=== PATIENT | male | born 1990 | race Caucasian/White ===

== ENCOUNTER 2025-01-10 06:29 | Day surgery (SDC) | payer OTHER ==
[~2025-01-10] VITALS: Ht 157.5 cm; Wt 75.9 kg
[~2025-01-10 06:29] MED LIST: ATOR20TA PO; BECL10.62 IH; FAMO20 PO; LISI-894 PO; MONT-35 PO
[2025-01-10] MEDS ORDERED: SODIUM CHLORIDE 0.9% 1,000 ML ONE (06:46)
[2025-01-10] MEDS: SODIUM CHLORIDE 0.9% 1,000 ML IV ONE (07:34)
[2025-01-10] MEDS ORDERED: MIDAZOLAM HCL 2 MG/2 ML VIAL ONE (08:04)
[2025-01-10] MEDS ORDERED: FentaNYL CITRATE PF 100 MCG/2 ML VIAL ONE (08:04)
[2025-01-10 09:55] VITALS: PULSE 86; RESP 18; O2SAT 99
[2025-01-10] MEDS ORDERED: BENZOCAINE 20% 50 MCG/SPRAY 57 GM ONE (12:00)
[2025-01-10] MEDS ORDERED: LIDOCAINE 4% 50 ML SOLUTION ONE (12:00)
[2025-01-10] MEDS ORDERED: ALBUTEROL SULFATE 2.5 MG/0.5 ML NEB SOLUTION NEB ONE (12:00)
[2025-01-10] MEDS ORDERED: LIDOCAINE 2% 11 ML JELLY ONE (12:00)
== END 2025-01-10 13:15 | disposition home or self-care (01) ==
LOC: SURGERY 06:29
PROVIDERS: ATTEND Internal Medicine Critical Care Medicine
DX: J38.4 Edema of larynx (principal); B37.0 Candidal stomatitis; R05.3 Chronic cough; R06.2 Wheezing
CPT/HCPCS: 87206; 87101; 87220; 87070; 88108; 31623; 31624; 71045; 87015; J3010; J2250; J2919; J7030; J7613; Z7610